=== PATIENT | female | born 1970 | race Caucasian/White ===

== ENCOUNTER 2023-07-11 13:29 | Outpatient (REF) | payer BC, SELFPAY ==
--- NOTE | 2023-07-11 11:45 | CER_PTH ---
PATIENT: MESSI DUNCAN LOC: [facility] U#:[id number] AGE/SX: 53/F ROOM: RE07/11/[address]: Shruthi Kate MD : 1970 BED: DIS: 07/11/2023 SPEC #: [id number] RECD: 07/11/23 17:24 STATUS: MORALES REAlicia #: [id number] [place]: 07/11/23 11:[address]: Shruthi Kate DEPT: Surgical Specimen RECD BY: Alta De Anda ENTERED: 07/11/23 17:24 SP TYPE: CER OTHR DR: Dinah Munoz Tissues: 1 - CERVICAL BIOPSY Procedures: GROSS AND MICRO LEVEL 4 Comments: [id number]
== END 2023-07-11 13:30 | disposition home or self-care (01) ==
LOC: LBN 13:29
PROVIDERS: PCP Family Medicine; Visit Provider Obstetrics & Gynecology
DX: N84.1 Polyp of cervix uteri (principal)
CPT/HCPCS: 88305